=== PATIENT | female | born 1990 | race Caucasian/White ===

== ENCOUNTER 2018-01-20 16:52 | Emergency (ER) | payer OTHER ==
[~2018-01-20] VITALS: Ht 185.4 cm; Wt 77.1 kg
[2018-01-20] MEDS ORDERED: MAXALT5 MG PO (17:01)
[2018-01-20 19:31] LABS: INFLUENZA A ANTIGEN None Detected (None Detect); INFLUENZA B ANTIGEN None Detected (None Detect)
[2018-01-20 19:40] VITALS: BP 107/73
== END 2018-01-20 19:40 | disposition home or self-care (01) ==
LOC: M.ERS 16:52
PROVIDERS: Nurse Practitioner Family
DX: R51 Headache (principal)